=== PATIENT | female | born 1990 | race Hispanic/Latino ===

== ENCOUNTER 2017-07-08 12:26 | Emergency (ER) | payer SELFPAY ==
[2017-07-08] MEDS ORDERED: ONDANSETRON ODT 4 MG TAB ONE (13:37)
[2017-07-08 13:45] LABS: APPEARANCE,URINE Clear (CLEAR); BILIRUBIN,URINE Negative (NEGATIVE); COLOR,URINE Yellow (YELLOW); GLUCOSE, URINE (UA) Negative (NEGATIVE); KETONES,URINE Negative (NEGATIVE); LEUKOCYTE ESTERASE ,URINE Moderate (NEGATIVE); NITRATE,URINE Negative (NEGATIVE); OCCULT BLOOD,URINE Small (NEGATIVE); PROTEIN,URINE Negative (NEGATIVE)
[2017-07-08 14:02] LABS: BASOPHILS % (AUTO) 0.5 % (0.0-5.0); EOSINOPHILS % (AUTO) 1.7 % (0.0-8.0); LYMPHOCYTES % (AUTO) 18.5 % (21.0-51.0); MEAN CORPUSCULAR HEMOGLOBIN 31.6 pg (27.0-33.0); MEAN CORPUSCULAR HGB CONC 34.5 g/dL (32.0-36.0); MEAN CORPUSCULAR VOLUME 91.5 fL (79-99); MONOCYTES % (AUTO) 11.5 % (3.0-13.0); NEUTROPHILS % (AUTO) 67.8 % (40.0-77.0); PLATELET COUNT (AUTO) 283 K/uL (130-400); RED BLOOD CELL COUNT(AUTO) 4.15 MIL/uL (4.00-5.50); RED CELL DISTRIBUTION WIDTH 13.5 % (11.0-15.5); WHITE BLOOD COUNT (AUTO) 8.6 K/uL (4.8-10.8)
[2017-07-08 14:20] LABS: HCG,QUAL RESULT NEGATIVE (NEGATIVE)
[2017-07-08 14:25] LABS: CREATININE 0.5 mg/dL (0.5-1.5); POTASSIUM 4.1 mmol/L (3.5-5.1)
[2017-07-08 14:28] LABS: BACTERIA,URINE Rare /HPF (None Seen); RBC,URINE 0-1 /HPF (0-1); SQUAMOUS EPITHELIAL CELL,UR Few /LPF (0-2)
[2017-07-08] MEDS ORDERED: HYOSCYAMINE SULFATE 0.125 MG TAB.SUBL SL ONE (15:24)
== END 2017-07-08 15:36 | disposition home or self-care (01) ==
LOC: EDH 12:26
DX: N39.0 Urinary tract infection, site not specified (principal); K59.00 Constipation, unspecified
CPT/HCPCS: 36415; 74021; 80048; 81001; 81025; 85025

== ENCOUNTER 2018-04-02 17:39 | Emergency (ER) | payer OTHER ==
[2018-04-02] MEDS ORDERED: METOCLOPRAMIDE 10 MG TABLET ONE (18:46)
[2018-04-02] MEDS ORDERED: DiphenhydrAMINE HCL 25 MG/10 ML ELIXIR UDCUP ONE (18:46)
[2018-04-02] MEDS ORDERED: KETOROLAC TROMETHAMINE 60 MG/2 ML VIAL ONE (18:47)
[2018-04-02] MEDS ORDERED: ONDANSETRON ODT 4 MG TAB ONE (18:47)
== END 2018-04-02 19:29 | disposition home or self-care (01) ==
LOC: EDH 17:39
DX: G44.209 Tension-type headache, unspecified, not intractable (principal)
CPT/HCPCS: 81025; 96372; 99284; J1885

== ENCOUNTER 2018-04-08 12:08 | Inpatient (IN) | payer SELFPAY ==
[~2018-04-08] VITALS: Ht 154.9 cm; Wt 55.6 kg
[2018-04-08 12:33] LABS: APPEARANCE,URINE Clear (CLEAR); BILIRUBIN,URINE Negative (NEGATIVE); COLOR,URINE Yellow (YELLOW); GLUCOSE, URINE (UA) Negative (NEGATIVE); KETONES,URINE Negative (NEGATIVE); LEUKOCYTE ESTERASE ,URINE Trace (NEGATIVE); NITRATE,URINE Negative (NEGATIVE); OCCULT BLOOD,URINE Negative (NEGATIVE); PH,URINE 8.5 (5.0-8.0); PROTEIN,URINE Negative (NEGATIVE)
[2018-04-08 12:36] LABS: HCG,QUAL RESULT NEGATIVE (NEGATIVE)
[2018-04-08 13:25] LABS: BACTERIA,URINE Rare /HPF (None Seen); RBC,URINE None Seen /HPF (0-1); SQUAMOUS EPITHELIAL CELL,UR Few /HPF (0-2); WBC,URINE 0-1 /HPF (0-1)
[2018-04-08] MEDS ORDERED: HYOSCYAMINE SULFATE 0.125 MG TAB.SUBL SL ONE (14:49)
[2018-04-08 17:47] LABS: BASOPHILS % (AUTO) 0.3 % (0.0-5.0); EOSINOPHILS % (AUTO) 0.8 % (0.0-8.0); HEMATOCRIT 43.7 % (36-48); LYMPHOCYTES % (AUTO) 12.3 % (21.0-51.0); MEAN CORPUSCULAR HEMOGLOBIN 31.5 pg (27.0-33.0); MEAN CORPUSCULAR VOLUME 92.6 fL (79-99); MONOCYTES % (AUTO) 5.8 % (3.0-13.0); NEUTROPHILS % (AUTO) 80.8 % (40.0-77.0); PLATELET COUNT (AUTO) 272 K/uL (130-400); RED BLOOD CELL COUNT(AUTO) 4.72 MIL/uL (4.00-5.50); RED CELL DISTRIBUTION WIDTH 13.1 % (11.0-15.5); WHITE BLOOD COUNT (AUTO) 12.2 K/uL (4.8-10.8)
[2018-04-08 18:01] LABS: CREATININE 0.5 mg/dL (0.5-1.5); POTASSIUM 4.1 mmol/L (3.5-5.1)
[2018-04-08] MEDS ORDERED: SODIUM CHLORIDE 0.9% 1000ML 1,000 ML IV ONE (18:02)
[2018-04-08 18:06] LABS: ALBUMIN 4.1 g/dL (3.5-5.0); BILIRUBIN,TOTAL 0.8 mg/dL (0.2-1.0); TOTAL PROTEIN, SERUM 8.1 g/dL (6.0-8.3)
[2018-04-08] MEDS ORDERED: PEG 3350/NA SULF,BICARB,CL/KCL 4000 ML SOLN PO ONE ×2 (19:00→21:00)
[2018-04-08 20:16] VITALS: BP 132/82
[2018-04-08 21:36] LABS: BASOPHILS % (AUTO) 0.4 % (0.0-5.0); EOSINOPHILS % (AUTO) 0.7 % (0.0-8.0); HEMATOCRIT 41.6 % (36-48); LYMPHOCYTES % (AUTO) 15.2 % (21.0-51.0); MEAN CORPUSCULAR HEMOGLOBIN 32.2 pg (27.0-33.0); MEAN CORPUSCULAR HGB CONC 34.9 g/dL (32.0-36.0); MEAN CORPUSCULAR VOLUME 92.2 fL (79-99); MONOCYTES % (AUTO) 5.8 % (3.0-13.0); NEUTROPHILS % (AUTO) 77.9 % (40.0-77.0); PLATELET COUNT (AUTO) 275 K/uL (130-400); RED BLOOD CELL COUNT(AUTO) 4.51 MIL/uL (4.00-5.50); RED CELL DISTRIBUTION WIDTH 12.4 % (11.0-15.5); WHITE BLOOD COUNT (AUTO) 9.5 K/uL (4.8-10.8)
[2018-04-08 21:48] LABS: CREATININE 0.6 mg/dL (0.5-1.5); POTASSIUM 3.7 mmol/L (3.5-5.1)
[2018-04-08 21:49] LABS: INR 1.03 (0.85-1.15); PROTHROMBIN TIME 10.8 SEC (9.6-11.6)
[2018-04-08] MEDS ORDERED: LIDOCAINE HCL-MPF 1% 2ML VIAL IVP PRN (22:15)
[2018-04-08] MEDS ORDERED: KETOROLAC TROMETHAMINE 30MG/ML IV PRN (22:15)
[2018-04-08] MEDS ORDERED: MAGNESIUM 2GM PREMIX 50ML 50 ML IV PRN (22:15)
[2018-04-08] MEDS ORDERED: POTASSIUM CHLORIDE 20MEQ/100ML 100 ML IV PRN (22:15)
[2018-04-08] MEDS: SODIUM CHLORIDE 0.9% 1000ML 1,000 ML IV SCH (22:19)
[2018-04-08] MEDS: FAMOTIDINE/PF 20 MG/2 ML VIAL IV SCH (22:19)
[2018-04-08] MEDS ORDERED: KETOROLAC TROMETHAMINE 30MG/ML ONE (23:06)
[2018-04-09] VITALS (14 sets, daily range): BP systolic 114–139; BP diastolic 60–86
[2018-04-09] MEDS: SODIUM CHLORIDE 0.9% 1000ML 1,000 ML IV SCH ×2 (03:25→14:01)
[2018-04-09 04:43] LABS: BASOPHILS % (AUTO) 0.6 % (0.0-5.0); EOSINOPHILS % (AUTO) 2.2 % (0.0-8.0); HEMATOCRIT 40.1 % (36-48); LYMPHOCYTES % (AUTO) 21.1 % (21.0-51.0); MEAN CORPUSCULAR HEMOGLOBIN 30.8 pg (27.0-33.0); MEAN CORPUSCULAR HGB CONC 33.3 g/dL (32.0-36.0); MEAN CORPUSCULAR VOLUME 92.4 fL (79-99); MONOCYTES % (AUTO) 10.6 % (3.0-13.0); NEUTROPHILS % (AUTO) 65.5 % (40.0-77.0); PLATELET COUNT (AUTO) 238 K/uL (130-400); RED BLOOD CELL COUNT(AUTO) 4.34 MIL/uL (4.00-5.50); RED CELL DISTRIBUTION WIDTH 12.7 % (11.0-15.5); WHITE BLOOD COUNT (AUTO) 7.8 K/uL (4.8-10.8)
[2018-04-09 04:57] LABS: ALBUMIN 3.4 g/dL (3.5-5.0); BILIRUBIN,TOTAL 0.8 mg/dL (0.2-1.0); CREATININE 0.6 mg/dL (0.5-1.5); MAGNESIUM 1.8 mg/dL (1.80-2.40); POTASSIUM 3.7 mmol/L (3.5-5.1); TOTAL PROTEIN, SERUM 7.1 g/dL (6.0-8.3)
[2018-04-09] MEDS: FAMOTIDINE/PF 20 MG/2 ML VIAL IV SCH (08:29)
[2018-04-09] MEDS ORDERED: PROPOFOL 10 MG/ML 20ML VIAL IV ONE ×2 (18:46→18:56)
== END 2018-04-09 21:50 | disposition home or self-care (01) | DRG 395 ==
LOC: EDH 12:08 → EDHIP 12:09 → 3AH 19:03
PROVIDERS: ADMIT Internal Medicine; ATTEND Internal Medicine
PROC: 0DBP8ZX Excision of Rectum, Via Natural or Artificial Opening Endoscopic, Diagnostic (ICD-10-PCS; principal; 2018-04-09)
DX: K62.6 Ulcer of anus and rectum (principal); R10.9 Unspecified abdominal pain; K56.41 Fecal impaction; K64.0 First degree hemorrhoids; F41.9 Anxiety disorder, unspecified
CPT/HCPCS: 36415; 45380; 74018; 74176; 80048; 80053; 81001; 81025; 83735; 85025; 85610; 88305; J1885; J2704; J3490; J7030

== ENCOUNTER 2018-12-14 22:11 | Emergency (ER) | payer OTHER ==
[2018-12-14 22:29] LABS: APPEARANCE,URINE Clear (CLEAR); BILIRUBIN,URINE Negative (NEGATIVE); COLOR,URINE Yellow (YELLOW); GLUCOSE, URINE (UA) Negative (NEGATIVE); KETONES,URINE Negative (NEGATIVE); LEUKOCYTE ESTERASE ,URINE Moderate (NEGATIVE); NITRATE,URINE Negative (NEGATIVE); OCCULT BLOOD,URINE Small (NEGATIVE); PROTEIN,URINE Negative (NEGATIVE)
[2018-12-14 23:00] LABS: BACTERIA,URINE None Seen /HPF (None Seen)
[2018-12-14 23:01] LABS: MUCUS,URINE Moderate LPF (None Seen); SQUAMOUS EPITHELIAL CELL,UR Moderate /HPF (0-2)
== END 2018-12-15 00:01 | disposition home or self-care (01) ==
LOC: EDH 22:11
DX: O23.41 Unspecified infection of urinary tract in pregnancy, first trimester (principal); F41.9 Anxiety disorder, unspecified; R10.2 Pelvic and perineal pain; Z3A.01 Less than 8 weeks gestation of pregnancy
CPT/HCPCS: 36415; 81001; 84702

== ENCOUNTER 2018-12-16 16:23 | Emergency (ER) | payer MEDICAID, OTHER ==
[2018-12-16 17:00] LABS: APPEARANCE,URINE Clear (CLEAR); BILIRUBIN,URINE Negative (NEGATIVE); COLOR,URINE Yellow (YELLOW); GLUCOSE, URINE (UA) Negative (NEGATIVE); KETONES,URINE Negative (NEGATIVE); LEUKOCYTE ESTERASE ,URINE Moderate (NEGATIVE); NITRATE,URINE Negative (NEGATIVE); OCCULT BLOOD,URINE Negative (NEGATIVE); PH,URINE 5.5 (5.0-8.0); PROTEIN,URINE Negative (NEGATIVE)
[2018-12-16 17:18] LABS: BACTERIA,URINE Few /HPF (None Seen); RBC,URINE 0-1 /HPF (0-1)
[2018-12-16 17:19] LABS: SQUAMOUS EPITHELIAL CELL,UR Few /HPF (0-2)
== END 2018-12-16 17:58 | disposition home or self-care (01) ==
LOC: EDH 16:23
DX: O23.41 Unspecified infection of urinary tract in pregnancy, first trimester (principal); F41.9 Anxiety disorder, unspecified; Z3A.01 Less than 8 weeks gestation of pregnancy
CPT/HCPCS: 81001; 87088

== ENCOUNTER 2019-03-28 20:26 | Emergency (ER) | payer MEDICAID ==
[2019-03-28 21:31] LABS: APPEARANCE,URINE Clear (CLEAR); BILIRUBIN,URINE Negative (NEGATIVE); COLOR,URINE Yellow (YELLOW); GLUCOSE, URINE (UA) Negative (NEGATIVE); KETONES,URINE Negative (NEGATIVE); LEUKOCYTE ESTERASE ,URINE Moderate (NEGATIVE); NITRATE,URINE Negative (NEGATIVE); OCCULT BLOOD,URINE Negative (NEGATIVE); PH,URINE 6.5 (5.0-8.0); PROTEIN,URINE Negative (NEGATIVE)
[2019-03-28 21:46] LABS: RBC,URINE 0-1 /HPF (0-1)
[2019-03-28 21:47] LABS: BACTERIA,URINE Few /HPF (None Seen); SQUAMOUS EPITHELIAL CELL,UR Few /HPF (0-2)
[2019-03-28 21:48] LABS: AMORPHOUS SEDIMENT,UR Few /LPF (None Seen)
[2019-03-28] MEDS ORDERED: LIDOCAINE HCL-MPF 1% 2ML VIAL ONE (21:51)
[2019-03-28] MEDS ORDERED: CEFTRIAXONE SODIUM 1 GM ONE (21:51)
== END 2019-03-28 23:07 | disposition home or self-care (01) ==
LOC: EDH 20:26
DX: O23.12 Infections of bladder in pregnancy, second trimester (principal); Z79.899 Other long term (current) drug therapy; Z3A.18 18 weeks gestation of pregnancy
CPT/HCPCS: 76805; 81001; 87804 ×2; 96372; 99285; J0696; J3490

== ENCOUNTER 2020-11-21 14:39 | Emergency (ER) | payer MEDICAID, OTHER ==
[~2020-11-21 14:39] MED LIST: PREN1TAB80 PO
[2020-11-21 16:20] LABS: BASOPHILS % (AUTO) 0.5 % (0.0-5.0); EOSINOPHILS % (AUTO) 1.8 % (0.0-8.0); HEMATOCRIT 37.5 % (36-48); LYMPHOCYTES % (AUTO) 16.9 % (21.0-51.0); MEAN CORPUSCULAR HEMOGLOBIN 28.5 pg (27.0-33.0); MEAN CORPUSCULAR HGB CONC 32.5 g/dL (32.0-36.0); MEAN CORPUSCULAR VOLUME 87.6 fL (79-99); MONOCYTES % (AUTO) 10.1 % (3.0-13.0); NEUTROPHILS % (AUTO) 70.2 % (40.0-77.0); PLATELET COUNT (AUTO) 253 K/uL (130-400); RED BLOOD CELL COUNT(AUTO) 4.28 MIL/uL (4.00-5.50); RED CELL DISTRIBUTION WIDTH 14.1 % (11.0-15.5); WHITE BLOOD COUNT (AUTO) 8.5 K/uL (4.8-10.8)
[2020-11-21 16:31] LABS: CREATININE 0.5 mg/dL (0.5-1.5); POTASSIUM 3.8 mmol/L (3.5-5.1)
[2020-11-21 16:36] LABS: ALBUMIN 3.7 g/dL (3.5-5.0); BILIRUBIN,TOTAL 0.4 mg/dL (0.2-1.0); TOTAL PROTEIN, SERUM 7.7 g/dL (6.0-8.3)
[2020-11-21] MEDS ORDERED: METHYLPREDNISOLONE SOD SUCC 40MG/ML 1ML ONE (16:39)
== END 2020-11-21 16:59 | disposition home or self-care (01) ==
LOC: EDH 14:39
DX: G56.22 Lesion of ulnar nerve, left upper limb (principal); S20.212A Contusion of left front wall of thorax, initial encounter; F41.9 Anxiety disorder, unspecified; Z86.16 Personal history of COVID-19; X58.XXXA Exposure to other specified factors, initial encounter; Y93.89 Activity, other specified; Y92.89 Other specified places as the place of occurrence of the external cause; Y99.8 Other external cause status
CPT/HCPCS: 36415; 80053; 84484; 85025; 93005; 96372; 99284; J2920

== ENCOUNTER 2021-01-09 15:07 | Emergency (ER) | payer MEDICAID ==
[~2021-01-09] VITALS: Ht 154.9 cm; Wt 68.0 kg
[2021-01-09 15:09] VITALS: BP 112/53
[2021-01-09] MEDS ORDERED: 0.9%NACL 1000ML 1,000 ML IV ONE (16:00)
[2021-01-09] MEDS ORDERED: CEFTRIAXONE 1G VIAL IVP ONE (16:00)
[2021-01-09] MEDS ORDERED: PHENAZOPYRIDINE HCL 200 MG TABLET PO ONE (16:00)
[2021-01-09 16:01] LABS: APPEARANCE,URINE CLOUDY (CLEAR); BILIRUBIN,URINE SMALL (NEGATIVE); COLOR,URINE YELLOW (YELLOW); GLUCOSE, URINE (UA) NEGATIVE (NEGATIVE); KETONES,URINE 5 mg/dL (NEGATIVE); LEUKOCYTE ESTERASE ,URINE SMALL (NEGATIVE); NITRATE,URINE POSITIVE (NEGATIVE); OCCULT BLOOD,URINE MODERATE (NEGATIVE); PROTEIN,URINE >=300 mg/dL (NEGATIVE); UROBILINOGEN,URINE >=8.0 mg/dL (0.2-1.0)
[2021-01-09 16:05] LABS: BASOPHILS % (AUTO) 0.1 % (0.0-5.0); HEMATOCRIT 39.3 % (36-48); LYMPHOCYTES % (AUTO) 2.8 % (21.0-51.0); MEAN CORPUSCULAR HEMOGLOBIN 28.1 pg (27.0-33.0); MEAN CORPUSCULAR HGB CONC 33.1 g/dL (32.0-36.0); MEAN CORPUSCULAR VOLUME 84.9 fL (79-99); MONOCYTES % (AUTO) 7.2 % (3.0-13.0); NEUTROPHILS % (AUTO) 89.3 % (40.0-77.0); PLATELET COUNT (AUTO) 157 K/uL (130-400); RED BLOOD CELL COUNT(AUTO) 4.63 MIL/uL (4.00-5.50); RED CELL DISTRIBUTION WIDTH 14.9 % (11.0-15.5); WHITE BLOOD COUNT (AUTO) 15.6 K/uL (4.8-10.8)
[2021-01-09 16:16] LABS: HCG,QUAL RESULT NEGATIVE (NEGATIVE)
[2021-01-09 16:19] LABS: BACTERIA,URINE Few /HPF (None Seen); MUCUS,URINE Rare LPF (None Seen); SQUAMOUS EPITHELIAL CELL,UR Moderate /HPF (0-2); WBC,URINE 26-50 /HPF (0-1)
[2021-01-09 16:28] LABS: CREATININE 0.7 mg/dL (0.5-1.5); POTASSIUM 3.4 mmol/L (3.5-5.1)
[2021-01-09 16:34] LABS: ALBUMIN 3.3 g/dL (3.5-5.0); BILIRUBIN,TOTAL 0.8 mg/dL (0.2-1.0)
[2021-01-09] MEDS ORDERED: HYDROCODONE/ACETAMINOPHEN 10/325 MG TAB PO ONE (17:00)
[2021-01-09] MEDS ORDERED: CEPH500B PO (17:48)
[2021-01-09] MEDS ORDERED: PHEN-847 PO (17:48)
[2021-01-09 18:22] VITALS: BP 114/76
== END 2021-01-09 18:22 | disposition home or self-care (01) ==
LOC: EDH 15:07
DX: N39.0 Urinary tract infection, site not specified (principal); E86.0 Dehydration; Z79.899 Other long term (current) drug therapy
CPT/HCPCS: 36415; 80053; 81001; 81025; 83690; 85025; 87077; 87088; 87186; 96374; 99283; J0696

== ENCOUNTER 2021-04-09 10:25 | Emergency (ER) | payer MEDICAID ==
[~2021-04-09] VITALS: Ht 154.9 cm; Wt 68.0 kg
[~2021-04-09 10:25] MED LIST changes: +CEPH500B PO; +PHEN-847 PO
[2021-04-09 10:49] LABS: BASOPHILS % (AUTO) 0.6 % (0.0-5.0); EOSINOPHILS % (AUTO) 3.3 % (0.0-8.0); HEMATOCRIT 38.6 % (36-48); LYMPHOCYTES % (AUTO) 24.6 % (21.0-51.0); MEAN CORPUSCULAR HEMOGLOBIN 28.7 pg (27.0-33.0); MEAN CORPUSCULAR HGB CONC 32.9 g/dL (32.0-36.0); MEAN CORPUSCULAR VOLUME 87.1 fL (79-99); MONOCYTES % (AUTO) 13.2 % (3.0-13.0); NEUTROPHILS % (AUTO) 57.9 % (40.0-77.0); PLATELET COUNT (AUTO) 238 K/uL (130-400); RED BLOOD CELL COUNT(AUTO) 4.43 MIL/uL (4.00-5.50); RED CELL DISTRIBUTION WIDTH 13.2 % (11.0-15.5); WHITE BLOOD COUNT (AUTO) 4.9 K/uL (4.8-10.8)
[2021-04-09 10:58] LABS: CREATININE 0.5 mg/dL (0.5-1.5); POTASSIUM 3.8 mmol/L (3.5-5.1)
[2021-04-09] MEDS ORDERED: PHENAZOPYRIDINE HCL 200 MG TABLET PO SCH (11:00)
[2021-04-09 11:03] LABS: ALBUMIN 3.8 g/dL (3.5-5.0); BILIRUBIN,TOTAL 0.3 mg/dL (0.2-1.0); TOTAL PROTEIN, SERUM 7.6 g/dL (6.0-8.3)
[2021-04-09 11:17] LABS: APPEARANCE,URINE Cloudy (CLEAR); BILIRUBIN,URINE Negative (NEGATIVE); COLOR,URINE Dark Yellow (YELLOW); GLUCOSE, URINE (UA) Negative (NEGATIVE); KETONES,URINE Negative (NEGATIVE); LEUKOCYTE ESTERASE ,URINE Moderate (NEGATIVE); NITRATE,URINE Negative (NEGATIVE); OCCULT BLOOD,URINE Negative (NEGATIVE); PROTEIN,URINE Trace mg/dL (NEGATIVE)
[2021-04-09 11:46] LABS: HCG,QUAL RESULT NEGATIVE (NEGATIVE)
[2021-04-09 11:50] LABS: SQUAMOUS EPITHELIAL CELL,UR 30-50 /HPF (0-2)
[2021-04-09 11:51] LABS: RBC,URINE 0-1 /HPF (0-1)
[2021-04-09 11:52] LABS: BACTERIA,URINE Moderate /HPF (None Seen)
[2021-04-09] MEDS ORDERED: PHEN-847 PO (12:40)
[2021-04-09] MEDS ORDERED: NITR100C4 PO (12:40)
[2021-04-09 12:47] VITALS: BP 136/98
== END 2021-04-09 14:18 | disposition home or self-care (01) ==
LOC: EDH 10:25
DX: N39.0 Urinary tract infection, site not specified (principal); Z98.51 Tubal ligation status; Z79.899 Other long term (current) drug therapy
CPT/HCPCS: 36415; 80053; 81001; 81025; 83690; 85025; 87088

== ENCOUNTER 2021-07-01 07:58 | Emergency (ER) | payer MEDICAID ==
[~2021-07-01] VITALS: Ht 154.9 cm; Wt 64.9 kg
[~2021-07-01 07:58] MED LIST changes: +NITR100C4 PO
[2021-07-01 08:50] LABS: APPEARANCE,URINE Clear (CLEAR); BASOPHILS % (AUTO) 0.5 % (0.0-5.0); BILIRUBIN,URINE Negative (NEGATIVE); COLOR,URINE Yellow (YELLOW); EOSINOPHILS % (AUTO) 2.5 % (0.0-8.0); GLUCOSE, URINE (UA) Negative (NEGATIVE); HEMATOCRIT 40.4 % (36-48); KETONES,URINE Negative (NEGATIVE); LEUKOCYTE ESTERASE ,URINE Negative (NEGATIVE); LYMPHOCYTES % (AUTO) 21.7 % (21.0-51.0); MEAN CORPUSCULAR HGB CONC 32.7 g/dL (32.0-36.0); MEAN CORPUSCULAR VOLUME 85.6 fL (79-99); MONOCYTES % (AUTO) 8.1 % (3.0-13.0); NEUTROPHILS % (AUTO) 66.9 % (40.0-77.0); NITRATE,URINE Negative (NEGATIVE); OCCULT BLOOD,URINE Large (NEGATIVE); PLATELET COUNT (AUTO) 265 K/uL (130-400); PROTEIN,URINE Negative (NEGATIVE); RED BLOOD CELL COUNT(AUTO) 4.72 MIL/uL (4.00-5.50); RED CELL DISTRIBUTION WIDTH 14.1 % (11.0-15.5); WHITE BLOOD COUNT (AUTO) 5.9 K/uL (4.8-10.8)
[2021-07-01 08:53] LABS: HCG,QUAL RESULT NEGATIVE (NEGATIVE)
[2021-07-01 08:54] LABS: BACTERIA,URINE Rare /HPF (None Seen); SQUAMOUS EPITHELIAL CELL,UR Rare /HPF (0-2); WBC,URINE 0-1 /HPF (0-1)
[2021-07-01 08:58] LABS: AMPHET/METH SCREEN,URINE NEGATIVE (NEGATIVE); BARBITURATE SCREEN, URINE NEGATIVE (NEGATIVE); BENZODIAZEPINES SCREEN,URINE NEGATIVE (NEGATIVE); CANNABINOID SCREEN,URINE NEGATIVE (NEGATIVE); COCAINE SCREEN,URINE POSITIVE (NEGATIVE); OPIATE SCREEN,URINE NEGATIVE (NEGATIVE); PHENCYCLIDINE SCREEN,URINE NEGATIVE (NEGATIVE)
[2021-07-01 08:59] LABS: CREATININE 0.5 mg/dL (0.5-1.5); POTASSIUM 3.7 mmol/L (3.5-5.1)
[2021-07-01 09:51] VITALS: BP 122/78
== END 2021-07-01 09:57 | disposition home or self-care (01) ==
LOC: EDH 07:58
DX: R42 Dizziness and giddiness (principal); F14.90 Cocaine use, unspecified, uncomplicated; Z79.899 Other long term (current) drug therapy; Z98.51 Tubal ligation status
CPT/HCPCS: 36415; 80048; 80305; 81001; 81025; 84484; 85025; 93005

== ENCOUNTER 2021-12-28 01:26 | Emergency (ER) | payer MEDICAID ==
[~2021-12-28] VITALS: Ht 154.9 cm; Wt 67.1 kg
[2021-12-28 01:33] VITALS: BP 157/77
[2021-12-28 01:53] LABS: APPEARANCE,URINE CLEAR (CLEAR); BILIRUBIN,URINE NEGATIVE (NEGATIVE); COLOR,URINE YELLOW (YELLOW); GLUCOSE, URINE (UA) NEGATIVE (NEGATIVE); KETONES,URINE NEGATIVE (NEGATIVE); LEUKOCYTE ESTERASE ,URINE TRACE (NEGATIVE); NITRATE,URINE NEGATIVE (NEGATIVE); OCCULT BLOOD,URINE NEGATIVE (NEGATIVE); PROTEIN,URINE NEGATIVE (NEGATIVE)
[2021-12-28 01:56] LABS: HCG,QUAL RESULT NEGATIVE (NEGATIVE)
[2021-12-28 02:05] LABS: BACTERIA,URINE None Seen /HPF (None Seen); MUCUS,URINE Rare LPF (None Seen); RBC,URINE None Seen /HPF (0-1); SQUAMOUS EPITHELIAL CELL,UR Few /HPF (0-2)
[2021-12-28] MEDS ORDERED: CEFTRIAXONE 500MG VIAL IM SCH (02:30)
[2021-12-28] MEDS ORDERED: DOXY-336 PO (02:44)
== END 2021-12-28 02:52 | disposition home or self-care (01) ==
LOC: EDH 01:26
DX: N73.9 Female pelvic inflammatory disease, unspecified (principal); Z79.899 Other long term (current) drug therapy; Z98.890 Other specified postprocedural states
CPT/HCPCS: 81001; 81025; 87210; 87486; 87797; 96372; 99283; J0696

== ENCOUNTER 2022-08-10 09:44 | Emergency (ER) | payer MEDICAID ==
[~2022-08-10] VITALS: Ht 154.9 cm; Wt 63.5 kg
[~2022-08-10 09:44] MED LIST changes: +DOXY-469 PO
[2022-08-10 10:16] LABS: BASOPHILS % (AUTO) 0.4 % (0.0-5.0); EOSINOPHILS % (AUTO) 1.3 % (0.0-8.0); HEMATOCRIT 42.4 % (36-48); LYMPHOCYTES % (AUTO) 17.3 % (21.0-51.0); MEAN CORPUSCULAR HEMOGLOBIN 30.2 pg (27.0-33.0); MEAN CORPUSCULAR HGB CONC 33.7 g/dL (32.0-36.0); MEAN CORPUSCULAR VOLUME 89.5 fL (79-99); MONOCYTES % (AUTO) 9.3 % (3.0-13.0); NEUTROPHILS % (AUTO) 71.3 % (40.0-77.0); PLATELET COUNT (AUTO) 287 K/uL (130-400); RED BLOOD CELL COUNT(AUTO) 4.74 MIL/uL (4.00-5.50); RED CELL DISTRIBUTION WIDTH 12.3 % (11.0-15.5); WHITE BLOOD COUNT (AUTO) 7.8 K/uL (4.8-10.8)
[2022-08-10 10:28] LABS: APPEARANCE,URINE CLOUDY (CLEAR); BILIRUBIN,URINE NEGATIVE (NEGATIVE); COLOR,URINE LIGHT-YELLOW (YELLOW); GLUCOSE, URINE (UA) NEGATIVE (NEGATIVE); KETONES,URINE NEGATIVE (NEGATIVE); LEUKOCYTE ESTERASE ,URINE 25 Leu/uL (NEGATIVE); NITRATE,URINE NEGATIVE (NEGATIVE); OCCULT BLOOD,URINE NEGATIVE (NEGATIVE); PH,URINE 7.5 (5.0-8.0); PROTEIN,URINE NEGATIVE (NEGATIVE)
[2022-08-10 10:39] LABS: CREATININE 0.4 mg/dL (0.5-1.5); POTASSIUM 3.8 mmol/L (3.5-5.1)
[2022-08-10 10:43] LABS: MUCUS,URINE RARE LPF (None Seen); SQUAMOUS EPITHELIAL CELL,UR MANY /HPF (0-2)
[2022-08-10 10:44] LABS: ALBUMIN 3.9 g/dL (3.5-5.0); TOTAL PROTEIN, SERUM 7.6 g/dL (6.0-8.3)
[2022-08-10 10:48] LABS: HCG,QUALITATIVE URINE NEGATIVE (NEGATIVE)
[2022-08-10] MEDS ORDERED: SULF1TAB42 PO (12:28)
[2022-08-10 13:33] VITALS: BP 138/74
== END 2022-08-10 13:39 | disposition home or self-care (01) ==
LOC: EDH 09:44
DX: N39.0 Urinary tract infection, site not specified (principal); G43.909 Migraine, unspecified, not intractable, without status migrainosus; R10.30 Lower abdominal pain, unspecified; Z20.822 Contact with and (suspected) exposure to COVID-19; Z79.899 Other long term (current) drug therapy; Z98.890 Other specified postprocedural states
CPT/HCPCS: 99284; 87635; 84484; 80053; 85025; 87804 ×2; 81001; 81025; 36415; 93005; C9803

== ENCOUNTER 2022-11-11 21:52 | Emergency (ER) | payer MEDICAID ==
[~2022-11-11] VITALS: Ht 154.9 cm; Wt 71.2 kg
[~2022-11-11 21:52] MED LIST changes: +SULF1TAB42 PO
[2022-11-11] MEDS ORDERED: ONDANSETRON 4MG INJ ONE (22:39)
[2022-11-11 23:00] LABS: APPEARANCE,URINE CLEAR (CLEAR); BILIRUBIN,URINE NEGATIVE (NEGATIVE); COLOR,URINE YELLOW (YELLOW); GLUCOSE, URINE (UA) 200 mg/dL (NEGATIVE); KETONES,URINE NEGATIVE (NEGATIVE); LEUKOCYTE ESTERASE ,URINE 75 Leu/uL (NEGATIVE); NITRATE,URINE NEGATIVE (NEGATIVE); OCCULT BLOOD,URINE SMALL (NEGATIVE); PH,URINE 5.5 (5.0-8.0); PROTEIN,URINE NEGATIVE (NEGATIVE); UROBILINOGEN,URINE 3 mg/dL (0.2-1.0)
[2022-11-11] MEDS ORDERED: ONDANSETRON 4MG INJ IVP ONE (23:00)
[2022-11-11 23:10] LABS: MUCUS,URINE RARE LPF (None Seen); SQUAMOUS EPITHELIAL CELL,UR MOD /HPF (0-2)
[2022-11-11 23:17] LABS: BASOPHILS % (AUTO) 0.6 % (0.0-5.0); EOSINOPHILS % (AUTO) 1.6 % (0.0-8.0); LYMPHOCYTES % (AUTO) 26.9 % (21.0-51.0); MEAN CORPUSCULAR HGB CONC 34.2 g/dL (32.0-36.0); MEAN CORPUSCULAR VOLUME 90.5 fL (79-99); MONOCYTES % (AUTO) 11.8 % (3.0-13.0); NEUTROPHILS % (AUTO) 58.7 % (40.0-77.0); PLATELET COUNT (AUTO) 260 K/uL (130-400); WHITE BLOOD COUNT (AUTO) 6.9 K/uL (4.8-10.8)
[2022-11-11 23:26] LABS: CREATININE 0.5 mg/dL (0.5-1.5); POTASSIUM 3.7 mmol/L (3.5-5.1)
[2022-11-11 23:30] LABS: ALBUMIN 3.8 g/dL (3.5-5.0)
[2022-11-12] MEDS ORDERED: OMEP40CA21 PO (03:01)
[2022-11-12] MEDS ORDERED: ONDA-104 PO (03:01)
[2022-11-12 03:40] VITALS: BP 139/68
== END 2022-11-12 04:09 | disposition home or self-care (01) ==
LOC: EDH 21:52
DX: K21.9 Gastro-esophageal reflux disease without esophagitis (principal); K82.4 Cholesterolosis of gallbladder; F41.9 Anxiety disorder, unspecified; Z79.899 Other long term (current) drug therapy; Z98.890 Other specified postprocedural states
CPT/HCPCS: 99285; 71045; 84484 ×2; 80053; 85025; 87088; 81001; 81025; 36415; 93005; 96374; 76705; J2405

== ENCOUNTER 2022-11-27 18:40 | Emergency (ER) | payer MEDICAID ==
[~2022-11-27] VITALS: Ht 154.9 cm; Wt 69.4 kg
[~2022-11-27 18:40] MED LIST changes: +OMEP40CA21 PO; +ONDA-104 PO
[2022-11-27 19:56] VITALS: BP 153/88
== END 2022-11-27 21:19 | disposition left against medical advice (07) ==
LOC: EDH 18:40
DX: R10.9 Unspecified abdominal pain (principal); Z53.21 Procedure and treatment not carried out due to patient leaving prior to being seen by health care provider
CPT/HCPCS: 99281

== ENCOUNTER 2023-04-06 19:37 | Emergency (ER) | payer MEDICAID ==
[~2023-04-06] VITALS: Ht 154.9 cm; Wt 67.1 kg
[2023-04-06 19:41] VITALS: BP 195/104; PULSE 76; RESP 18
[2023-04-06] MEDS ORDERED: HYDROCODONE/ACETAMINOPHEN 5/325 MG TAB PO ONE (21:00)
== END 2023-04-06 20:58 | disposition home or self-care (01) ==
LOC: EDH 19:37
DX: S63.615A Unspecified sprain of left ring finger, initial encounter (principal); Z79.899 Other long term (current) drug therapy; X58.XXXA Exposure to other specified factors, initial encounter; Y93.89 Activity, other specified; Y92.89 Other specified places as the place of occurrence of the external cause; Y99.8 Other external cause status
CPT/HCPCS: 73140

== ENCOUNTER 2024-06-03 15:33 | Emergency (ER) | payer SELFPAY ==
[~2024-06-03] VITALS: Ht 154.9 cm; Wt 63.5 kg
[~2024-06-03 15:33] MED LIST changes: -DOXY-469 PO; +DOXY100C61 PO
--- NOTE | 2024-06-03 15:41 | ERN ---
ED Note History of Present Illness Stated Complaint: HEADACHE Chief Complaint: Headache Time Seen by MD: 15:37 Dictation: 34-YEAR-OLD FEMALE COMING IN TODAY WITH COMPLAINTS OF BILATERAL TEMPORAL HEADACHE THAT RADIATES TO THE OCCIPUT ONSET THIS MORNING AT 07:00 HOURS. SHE DENIED THAT IT WAS A THUNDERBEAT TYPE HEADACHE SAID HAS BEEN GRADUAL AND THAT SHE HAS MIGRAINE HEADACHE HISTORY. STATES HER PRIMARY CARE DOCTOR IS SUPRIYA PITTMAN HOWEVER SHE TOOK IBUPROFEN THIS MORNING AND THEN THREW IT UP AND DID NOT GO SEE HER DOCTOR. SHE STATES SHE HAD A FALL OVER A MONTH AGO AND HIT HER OCCIPUT HOWEVER SHE WAS TREATED AT [facility] IN [facility] WITH A CT AND EVERYTHING WAS NEGATIVE. NIH IS 0 GAIT IS STEADY TO TRIAGE. Patient did state she has been diagnosed with a concussion after the CT and was referred to a neurologist but because she did not have Medicaid at the time she did not go. She states she now has Medicaid back in place and is going to call the neurologist that she was referred to. Allergies: Coded Allergies: No Known Drug Allergies (Unverified Allergy, Unknown, 04/08/18) Home Meds Active Scripts Ondansetron HCl (Ondansetron HCl) 4 Mg Tablet, 4 MG PO TIDP PRN for VOMITING, #20 TAB Prov:ZACK RILEY MD 11/12/22 Omeprazole (Omeprazole) 40 Mg Capsule.dr, 40 MG PO DAILY, #30 CAP Prov:ZACK RILEY MD 11/12/22 Sulfamethoxazole/Trimethoprim (Bactrim Ds Tablet) 1 Each Tablet, 1 TAB PO BID for UTI for 5 Days, #10 TAB 0 Refills Prov:GENNY OSWALD DNP 08/10/22 Doxycycline Monohydrate (Doxycycline Monohydrate) 100 Mg Capsule, 1 CAP PO BID for 10 Days, #20 CAP 0 Refills Prov:AMANDA PADILLA MD 12/28/21 Phenazopyridine HCl (Pyridium) 200 Mg Tab, 200 MG PO TID for UTI for 3 Days, #9 TAB 0 Refills Prov:RODNEY GARCIA MD 04/09/21 Nitrofurantoin Monohyd/M-Cryst (Macrobid 100 mg Capsule) 100 Mg Capsule, 100 MG PO BIDPC for UTI, #14 CAP 0 Refills Prov:RODNEY GARCIA MD 04/09/21 Phenazopyridine HCl (Pyridium) 200 Mg Tab, 200 MG PO TIDPC, #9 TAB TAKE WITH FOOD TO PREVENT STOMACH UPSET. Prov:SMILEY TURNERAlfonzo TONY 01/09/21 Cephalexin Monohydrate (Keflex) 500 Mg Cap, 500 MG PO TID, #21 CAP Prov:LC TURNERRON TONY 01/09/21 Reported Medications Vits W-Ca,Fe,FA(<1Mg) ( Vitamins) 1 Each Tablet, 1 EACH PO DAILY, #1 TAB 08/05/19 Past Medical History Past Medical History: Anxiety, Migraines Surgical History: None Surgical History Other: Tubal ligation PSYCH History: no pertinent psych hx Family History: Negative Social History: Negative, Lives with family, Other History: Not Applicable : 5 Para: 5 Aborts: 0 RN Note Reviewed/Agreed w/PFSH: Yes Review of System Dictation CONSTITUTIONAL: NEGATIVE EXCEPT FOR HPI HEAD/FACE: NEGATIVE EXCEPT FOR HPI EENT: NEGATIVE EXCEPT FOR HPI RESPIRATORY: NEGATIVE EXCEPT FOR HPI GASTROINTESTINAL/ABDOMINAL: NEGATIVE EXCEPT FOR HPI GENITOURINARY: NEGATIVE EXCEPT FOR HPI MUSCULOSKELETAL: NEGATIVE EXCEPT FOR HPI INTEGUMENTARY: NEGATIVE EXCEPT FOR HPI NEUROLOGICAL/PSYCH: NEGATIVE EXCEPT FOR HPI HEADACHE HEMATOLOGIC/LYMPHATIC: NEGATIVE EXCEPT FOR HPI ALL SYSTEMS NEGATIVE, EXCEPT NOTED ABOVE. 13 POINT REVIEW OF SYSTEMS ASSESSED AND ALL NEGATIVE EXCEPT FOR ABOVE. Initial Vital Sign VS Vital Signs Date Time Temp Pulse Resp B/P (MAP) Pulse Ox O2 Delivery O2 Flow Rate FiO2 06/03/24 15:36 98.1 79 18 181/84 98 Physical Exam Dictation VITAL SIGNS REVIEWED GENERAL APPEARANCE: ALERT, ORIENTED X 3, MILD ACUTE DISTRESS, WELL DEVELOPED, NOURISHED. HEAD AND FACE: NON-TRAUMATIC. EYES: PERRL, PINK CONJUNCTIVAS, EYELID NO TRAUMA, ANTERIOR CHAMBER WITH ARCUS SENILIS. EARS: PINNAS INTACT AND NO SIGNS OF TRAUMA OR ERYTHEMA EAR CANALS CLEAR AND NO DISCHARGE TM NO ERYTHEMA NOSE: NO DISCHARGE, NO BLEEDING. OROPHARYNX: MOUTH NORMAL, TONGUE PINK, PHARYNX CLEAR,NO ERYTHEMA, TONSILS NO EXUDATES, NO ABSCESSES NOTED, MUCOUS MEMBRANE MOIST NECK: SUPPLE, NON-TENDER, NO THYROMEGALY, NO MASSES, NO JVD, NO BRUITS BREAST:DEFERRED CHEST:NO TENDERNESS, NO CREPITUS, NO PARADOXICAL MOVEMENT, NO RETRACTIONS LUNGS:CLEAR, WELL-VENTILATED, SYMMETRIC, NO RALES, NO WHEEZING, NO RHONCHI, NO STRIDOR, GOOD BREATH SOUNDS BILATERALLY HEART: REGULAR RATE, REGULAR RHYTHM, NO MURMUR, NO GALLOPS VASCULAR: NO PERIPHERAL EDEMA, ABDOMEN: SOFT, POSITIVE BOWEL SOUNDS, NONDISTENDED, NO GUARDING, NONTENDER, NO REBOUND, NO MASSES NO HEPATOMEGALY, NO SPLENOMEGALY, NO NICOLE'S SIGN, NO HERNIAS. RECTAL: DEFERRED GENITAL: DEFERRED NEUROLOGICAL: NORMAL SPEECH, MOTOR FUNCTION INTACT, SENSORY FUNCTION INTACT NIH IS 0 MUSCULOSKELETAL: NECK NONTENDER, FULL RANGE OF MOTION, BACK NONTENDER, FULL RANGE OF MOTION, EXTREMITIES: NONTENDER, FULL RANGE OF MOTION SKIN: COLOR PINK, DRY, NO TURGOR, NO RASH, NO LACERATIONS, NO ABRASIONS, NO CONTUSIONS. LYMPHATIC: DEFERRED Results (Laboratory/Radiology) Labs Reviewed?: Yes ED Course ED Course Orders Procedure Category Date Status Time Cyclobenzaprine Hcl PHA 06/03/24 Complete (Cyclobenzaprine Hcl 16:00 Dexamethasone 4mg/Ml PHA 06/03/24 Complete 1ml Vial (Dexametha 16:00 Ketorolac 60mg/2ml PHA 06/03/24 Complete (Toradol 60mg/2ml) 16:00 Current Medications Medications (Trade) Dose Ordered Sig/Miriam Route PRN Reason Start Time Stop Time Status Last Admin Dose Admin Cyclobenzaprine HCl (Cyclobenzaprine HCl) 10 mg ONCE ONCE PO 06/03/24 16:00 06/03/24 16:01 DC 06/03/24 16:54 Dexamethasone Sodium Phosphate (dexaMETHasone 4MG/ML 1ML VIAL) 8 mg ONCE ONCE IM 06/03/24 16:00 06/03/24 16:01 DC 06/03/24 16:54 Ketorolac Tromethamine (toRADol 60MG/ 2ML) 60 mg ONCE ONCE IM 06/03/24 16:00 06/03/24 16:01 DC 06/03/24 16:54 Vital Signs Date Time Temp Pulse Resp B/P (MAP) Pulse Ox O2 Delivery O2 Flow Rate FiO2 06/03/24 15:36 98.1 79 18 181/84 98 725 pain is reduced down to 1/10 patient states she is ready to go home. NIH is 0 Medical Decision Making MDM Medical decision-making based on treatment for postconcussion headache. Pain relieved Patient is sent home with Fioricet and told to follow up with her neurologist from her EM emergency room referral DX & DISP Disposition: Discharge Departure Impression: Primary Impression: Post-concussion headache Condition: Stable Scripts Butalb/Acetaminophen/Caffeine (Esgic 50-325-40 mg Tablet) 50 Mg-325 Mg-40 Mg Tablet 2 TAB PO Q4H, #20 TAB 0 Refills Two tablets by mouth every4 hours p.r.n. headache, maximum six tablets in 24 hours Prov: TRE MOTTA NP 06/03/24 Additional Instructions: Follow-up with primary care provider in 1 to 2 days. Take medications as directed here in the emergency room. Okay to continue home medications unless otherwise discussed during your visit in the emergency room today. Return to your nearest emergency room if symptoms worsen or if there is no improvement. Call 911 if you need immediate assistance. Take Tylenol or Motrin [id number] as needed and if no contraindications are present. Increase oral hydration. A wound culture or urine culture was ordered here in the emergency room department please follow-up with primary care provider and advise them to get repeat ports from our facility. If you had any Sloan wrap/splints that were applied here, please do not remove them until you see your primary care or specialty. Take medications as directed for your headache. Follow up with the neurologist who you were referred to by your primary care doctor. Referrals: BAILEY ROUSSEAU MD (PCP) Time of Disposition: 17:23 I have reviewed the case, and I agree with, Diagnosis and Plan TRE MOTTA NP Jun 03, 2024 15:41
[2024-06-03] MEDS: ketOROlac 60 MG VIAL (30MG/ML) IM ONE (16:54)
[2024-06-03] MEDS: CYCLOBENZAPRINE HCL 10 MG TABLET PO ONE (16:54)
[2024-06-03] MEDS: dexaMETHasone SOD PHOSPHATE 4 MG/ML 1ML VIAL IM ONE (16:54)
[2024-06-03] MEDS ORDERED: BUTA-271 PO (17:24)
[2024-06-03 17:44] VITALS: BP 132/90; PULSE 80; RESP 16; TEMP 98.3; O2SAT 98
== END 2024-06-03 17:38 | disposition home or self-care (01) ==
LOC: EDH 15:33
DX: G44.309 Post-traumatic headache, unspecified, not intractable (principal); Z79.899 Other long term (current) drug therapy; Z98.51 Tubal ligation status; F41.9 Anxiety disorder, unspecified
CPT/HCPCS: 99284; 96372 ×2; J1100; J1885

== ENCOUNTER 2024-06-05 13:55 | Emergency (ER) | payer SELFPAY ==
[~2024-06-05] VITALS: Ht 154.9 cm; Wt 63.5 kg
[~2024-06-05 13:55] MED LIST changes: +BUTA-271 PO
[2024-06-05] MEDS: acetaMINOPHEN 500 MG TABLET PO ONE (14:50)
--- NOTE | 2024-06-05 14:59 | ERN ---
General Chief Complaint: Headache Stated Complaint: HEADACHE Time Seen by MD: 13:59 Time Seen by Midlevel: 13:59 Source: patient History of Present Illness Initial Comments 34-year-old female who presents to the ED due to headache onset two days. Patient reports she was seen here at the ED given medication which improved the pain. Patient reports a concussion back in March after a fall, and to dental cavities ongoing for two years. Patient reports she is concerned due to pain not improving after ibuprofen, and randomly falling asleep. States she had two episodes of vomiting on Thursday but no other symptoms since. Allergies: Coded Allergies: No Known Drug Allergies (Unverified Allergy, Unknown, 04/08/18) Home Meds Active Scripts Amoxicillin/Potassium Clav (Amox Tr-K Clv 875-125 mg Tab) 875 Mg-125 Mg Tablet, 1 TAB PO BID for 7 Days, #14 TAB 0 Refills Prov:BONG TINEO 06/05/24 Gabapentin (Gabapentin) 100 Mg Capsule, 1 CAP PO TID for 3 Days, #90 CAP 0 Refills Prov:BONG TINEO 06/05/24 Butalb/Acetaminophen/Caffeine (Esgic 50-325-40 mg Tablet) 50 Mg-325 Mg-40 Mg Tablet, 2 TAB PO Q4H, #20 TAB 0 Refills Two tablets by mouth every4 hours p.r.n. headache, maximum six tablets in 24 hours Prov:TRE MOTTA NP 06/03/24 Ondansetron HCl (Ondansetron HCl) 4 Mg Tablet, 4 MG PO TIDP PRN for VOMITING, #20 TAB Prov:ZACK RILEY MD 11/12/22 Omeprazole (Omeprazole) 40 Mg Capsule.dr, 40 MG PO DAILY, #30 CAP Prov:ZACK RILEY MD 11/12/22 Sulfamethoxazole/Trimethoprim (Bactrim Ds Tablet) 1 Each Tablet, 1 TAB PO BID for UTI for 5 Days, #10 TAB 0 Refills Prov:GENNY OSWALD DNP 08/10/22 Doxycycline Monohydrate (Doxycycline Monohydrate) 100 Mg Capsule, 1 CAP PO BID for 10 Days, #20 CAP 0 Refills Prov:AMANDA PADILLA MD 12/28/21 Phenazopyridine HCl (Pyridium) 200 Mg Tab, 200 MG PO TID for UTI for 3 Days, #9 TAB 0 Refills Prov:RODNEY GARCIA MD 04/09/21 Nitrofurantoin Monohyd/M-Cryst (Macrobid 100 mg Capsule) 100 Mg Capsule, 100 MG PO BIDPC for UTI, #14 CAP 0 Refills Prov:RODNEY GARCIA MD 04/09/21 Phenazopyridine HCl (Pyridium) 200 Mg Tab, 200 MG PO TIDPC, #9 TAB TAKE WITH FOOD TO PREVENT STOMACH UPSET. Prov:ANDRÉS TURNER 01/09/21 Cephalexin Monohydrate (Keflex) 500 Mg Cap, 500 MG PO TID, #21 CAP Prov:ANDRÉS TURNER 01/09/21 Reported Medications Vits W-Ca,Fe,FA(<1Mg) ( Vitamins) 1 Each Tablet, 1 EACH PO DAILY, #1 TAB 08/05/19 Past Medical History Past Medical History: Anxiety Past Surgical History: None Surgical History Other: Tubal ligation Family History Family History: Negative Social History Social History: Negative, Lives with family, Other Female( History) History: Not Applicable LMP: May 13, 2024 : 5 Para: 5 Aborts: 0 ROS Dictation Constitutional: Negative for fever,chills, and weight loss Eyes: Negative for injury, pain,redness, and discharge ENT: Positive for dental pain and facial pain Negative for injury,or swelling Cardiovascular: Negative for chest pain, palpitations, and edema Respiratory: Negative for shortness of breath, cough, and wheezing, Abdomen/GI: Negative for abdominal pain, nausea, vomiting, diarrhea, and constipation Back: Negative for injury and pain : Negative for painful urination, bleeding or discharge MS/Extremity: Negative for injury and deformity Skin: Negative for rash, and discoloration Neuro: Positive for headache Negative for weakness, numbness, tingling, and seizure Psych: Negative for suicide ideation, homicidal ideation, and hallucinations Physical Exam Physical Exam Dictation General: awake, alert, no acute distress Head/Face: Normocephalic, atraumatic Eyes: PERRL, EOMI, normal conjunctiva ENT: oral mucosa moist, dental cavity noted to the upper right 4th and 5th tooth Neck: Normal range of motion Cardiovascular: RRR, normal S1/S2 Respiratory: CTAB, no respiratory distress Skin: Warm, dry, normal turgor, no rash MS/Extremity: Pulses equal, no cyanosis, neurovascular intact, FROM Neuro: COAx4, GCS 15, strength 5/5, CN 2-12 intact, normal cerebellar exam, normal gait Psych: Normal behavior, mood, and affect normal Results Laboratory and Microbiology Lab and Micro Result Laboratory Tests Test 06/05/24 15:01 White Blood Count 7.7 K/uL (4.8-10.8) Red Blood Count 4.13 MIL/uL (4.00-5.50) Hemoglobin 13.0 g/dL (12.0-16.0) Hematocrit 38.2 % (36-48) Mean Corpuscular Volume 92.5 fL (79-99) Mean Corpuscular Hemoglobin 31.5 pg (27.0-33.0) Mean Corpuscular Hemoglobin Concent 34.0 g/dL (32.0-36.0) Red Cell Distribution Width 12.5 % (11.0-15.5) Platelet Count 227 K/uL (130-400) Mean Platelet Volume 11.4 fL (7.5-10.5) H Immature Granulocyte % (Auto) 0.5 % (0-1) Neutrophils (%) (Auto) 66.2 % (40.0-77.0) Lymphocytes (%) (Auto) 22.9 % (21.0-51.0) Monocytes (%) (Auto) 9.0 % (3.0-13.0) Eosinophils (%) (Auto) 0.7 % (0.0-8.0) Basophils (%) (Auto) 0.7 % (0.0-5.0) Neutrophils # (Auto) 5.1 K/uL (1.8-7.7) Lymphocytes # (Auto) 1.8 K/uL (1.0-4.8) Monocytes # (Auto) 0.7 K/uL (0.1-1.0) Eosinophils # (Auto) 0.05 K/uL (0.00-0.70) Basophils # (Auto) 0.05 K/uL (0.00-0.20) Absolute Immature Granulocyte (auto 0.04 K/uL (0-1) Nucleated Red Blood Cells 0.0 % (0.0-0.19) Prothrombin Time 10.9 SEC (9.6-11.6) Prothromb Time International Ratio 1.01 (0.85-1.15) Activated Partial Thromboplast Time 24.5 SEC (26.3-35.5) L Sodium Level 141 mmol/L (136-145) Potassium Level 3.8 mmol/L (3.5-5.1) Chloride Level 107 mmol/L (101-111) Carbon Dioxide Level 28 mmol/L (21-32) Blood Urea Nitrogen 10 mg/dL (7-18) Creatinine 0.5 mg/dL (0.5-1.0) Glomerular Filtration Rate Calc 127 mL/min (>90) Random Glucose 114 mg/dL (70-105) H Total Calcium 7.9 mg/dL (8.5-10.1) L Labs Reviewed?: Yes EKG/XRAY/US/CT/MRI Ultrasound Comment REASON: Headache ORDERING PHYSICIAN: BONG TINEO PROCEDURE: HEAD WO - CT HEAD/BRAIN W/O CONTRAST Exam: NONCONTRAST CT BRAIN REASON: Headache. COMPARISON: None. TECHNIQUE: Images are obtained from vertex to the skull base. The exam was performed without IV contrast. FINDINGS: There is normal appearing brain parenchyma. There are no focal mass lesions. There is is no evidence of intracranial hemorrhage or acute stroke. Ventricles and sulci appear normal. Posterior fossa and brainstem structures are unremarkable. Paranasal sinuses and remaining extracranial soft tissues appear normal as well. IMPRESSION: 1. Normal noncontrast CT brain. CT was performed with one or more following dose reduction techniques: automated exposure control, adjustment of the mA and kv according to patient's size, or use of a iterative reconstruction technique. MDM MDM: Differential diagnosis: Migraine, headache, dental infection, dental cavities Rationale: 34-year-old female who presents to the ED due to headache onset two days. Patient reports she was seen here at the ED given medication which improved the pain. Patient reports a concussion back in March after a fall, and to dental cavities ongoing for two years. Patient reports she is concerned due to pain not improving after ibuprofen, and randomly falling asleep. States she had two episodes of vomiting on Thursday but no other symptoms since. Per physical examination patient is neurologically intact, in no acute distress. Patient requested head CT due to worsening headache and fear from previous concussion. Labs obtained are nonspecific. CT head unremarkable. Patient was educated on findings and diagnosis. Administered ketorolac and gabapentin in the ED with pain improvement. Patient was initiated on antibiotics prophylactically. Advised to follow up with PCP. Return to the ED if any worsening symptoms. Patient verbalized understanding. Patient stable for discharge. There are no social concerns with this patient. I independently interpreted the test that were performed, results were reviewed by me and considered findings on radiology if ordered. Medical management and examination interpretation discussions were had by me with other qualified healthcare professionals as indicated for the patient's care. ED Course Orders Procedure Category Date Status Time Cbc With Differential LAB 06/05/24 Complete 14: Basic Metabolic Panel LAB 06/05/24 Complete 14:26 Pt And Ptt LAB 06/05/24 Complete 14: Ct Head/Brain W/O CT 06/05/24 Resulted Contrast 14:32 Acetaminophen 500mg PHA 06/05/24 Complete Tab (Tylenol 500mg T 15:00 Ketorolac PHA 06/05/24 Complete Tromethamine 30mg/Ml 16:30 Gabapentin 100 Mg Cap PHA 06/05/24 Complete (Neurontin 100 Mg 16:30 Current Medications Medications (Trade) Dose Ordered Sig/Miriam Route PRN Reason Start Time Stop Time Status Last Admin Dose Admin Acetaminophen (TYLenol 500MG TAB) 1,000 mg ONCE ONCE PO 06/05/24 15:00 06/05/24 15:01 DC 06/05/24 14:50 Gabapentin (NEURontin 100 mg CAP) 100 mg ONCE PO 06/05/24 16:30 06/05/24 16:43 DC 06/05/24 16:22 Ketorolac Tromethamine (toRADol) 30 mg ONCE ONCE IM 06/05/24 16:30 06/05/24 16:31 DC 06/05/24 16:23 Vital Signs Date Time Temp Pulse Resp B/P (MAP) Pulse Ox O2 Delivery O2 Flow Rate FiO2 06/05/24 16:23 98.8 67 18 157/67 100 Room Air* 0 06/05/24 15:24 74 20 156/110 100 Room Air* 0 06/05/24 14:10 98.2 80 20 162/101 100 Room Air* 0 06/05/24 13:58 99.1 74 16 168/104 98 0 DX & DISP Disposition: Discharge Departure Impression: Primary Impression: Dental cavity Additional Impression: Headache Condition: Stable Scripts Amoxicillin/Potassium Clav (Amox Tr-K Clv 875-125 mg Tab) 875 Mg-125 Mg Tablet 1 TAB PO BID for 7 Days, #14 TAB 0 Refills Prov: BONG TINEO 06/05/24 Gabapentin (Gabapentin) 100 Mg Capsule 1 CAP PO TID for 3 Days, #90 CAP 0 Refills Prov: BONG TINEO 06/05/24 Additional Instructions: Discharge home. Rest. Follow up with primary care DrJose in 24 hours. Return to the ER for any acute changes or worsening symptoms. If any medications were prescribed take as directed. Okay to continue home medications unless otherwise discussed during your visit in the emergency room today. Patient was also advised to follow-up with primary care physician in 1 to 2 days for continued monitoring. Referrals: BAILEY ROUSSEAU MD (PCP) I participated in the following activities of this patient's care: For this patient encounter, I reviewed the PA or [employer] documentation, treatment plan, and medical decision making. I did not have [id number] time with this patient. I will sign as the reviewing DrJose And agree with the treatment plan and disposition. BONG TINEO Jun 05, 2024 14:59
[2024-06-05 15:15] LABS: BASOPHILS # (AUTO) 0.05 K/uL (0.00-0.20); BASOPHILS % (AUTO) 0.7 % (0.0-5.0); EOSINOPHILS # (AUTO) 0.05 K/uL (0.00-0.70); EOSINOPHILS % (AUTO) 0.7 % (0.0-8.0); HEMATOCRIT 38.2 % (36-48); IMMATURE GRANULOCYTE ABSOLUTE 0.04 K/uL (0-1); LYMPHOCYTES # (AUTO) 1.8 K/uL (1.0-4.8); LYMPHOCYTES % (AUTO) 22.9 % (21.0-51.0); MEAN CORPUSCULAR HEMOGLOBIN 31.5 pg (27.0-33.0); MEAN CORPUSCULAR VOLUME 92.5 fL (79-99); MONOCYTES # (AUTO) 0.7 K/uL (0.1-1.0); NEUTROPHILS # (AUTO) 5.1 K/uL (1.8-7.7); NEUTROPHILS % (AUTO) 66.2 % (40.0-77.0); PLATELET COUNT (AUTO) 227 K/uL (130-400); RED BLOOD CELL COUNT(AUTO) 4.13 MIL/uL (4.00-5.50); RED CELL DISTRIBUTION WIDTH 12.5 % (11.0-15.5); WHITE BLOOD COUNT (AUTO) 7.7 K/uL (4.8-10.8)
--- NOTE | 2024-06-05 15:23 | NUR ---
INFORMED PA REGARDING PATIENT PAIN. NO ORDERS AT THIS TIME.
--- NOTE | 2024-06-05 15:25 | NUR ---
PATIENT HAS BILATERAL TUBE LIGATION. CT TRANSPORTER DARIUS INFORMED AT THIS TIME
[2024-06-05 15:27] LABS: INR 1.01 (0.85-1.15); PROTHROMBIN TIME 10.9 SEC (9.6-11.6)
[2024-06-05 15:28] LABS: PARTIAL THROMBOPLASTIN TIME 24.5 SEC (26.3-35.5)
[2024-06-05 15:29] LABS: CREATININE 0.5 mg/dL (0.5-1.0); POTASSIUM 3.8 mmol/L (3.5-5.1)
--- NOTE | 2024-06-05 16:06 | HMCIMG ---
Exam: NONCONTRAST CT BRAIN REASON: Headache. COMPARISON: None. TECHNIQUE: Images are obtained from vertex to the skull base. The exam was performed without IV contrast. FINDINGS: There is normal appearing brain parenchyma. There are no focal mass lesions. There is is no evidence of intracranial hemorrhage or acute stroke. Ventricles and sulci appear normal. Posterior fossa and brainstem structures are unremarkable. Paranasal sinuses and remaining extracranial soft tissues appear normal as well. IMPRESSION: 1. Normal noncontrast CT brain. CT was performed with one or more following dose reduction techniques: automated exposure control, adjustment of the mA and kv according to patient's size, or use of a iterative reconstruction technique.
[2024-06-05] MEDS: GABApentin 100 MG CAPSULE PO SCH (16:22)
[2024-06-05 16:23] VITALS: BP 157/67; PULSE 67; RESP 18; TEMP 98.8; O2SAT 100
[2024-06-05] MEDS: ketOROlac 30MG VIAL (30MG/ML) IM ONE (16:23)
[2024-06-05] MEDS ORDERED: AMOX1TAB16 PO (16:30)
[2024-06-05] MEDS ORDERED: GABA-529 PO (16:30)
== END 2024-06-05 16:41 | disposition home or self-care (01) ==
LOC: EDH 13:55
DX: K02.9 Dental caries, unspecified (principal); R51.9 Headache, unspecified; Z79.899 Other long term (current) drug therapy; Z98.51 Tubal ligation status
CPT/HCPCS: 99285; 70450; 80048; 85025; 85610; 85730; 36415; 96372; J1885

== ENCOUNTER 2024-06-15 19:48 | Emergency (ER) | payer SELFPAY ==
[~2024-06-15] VITALS: Ht 154.9 cm; Wt 66.7 kg
[~2024-06-15 19:48] MED LIST changes: +AMOX1TAB16 PO; +GABA-529 PO
[2024-06-15 20:09] VITALS: PULSE 70
--- NOTE | 2024-06-15 20:15 | ERN ---
ED Note History of Present Illness Stated Complaint: C/O UPPER BACK PAIN W/SOB,CHEST TIGHTNESS,NAUSEA Chief Complaint: Back Pain-No Injury Time Seen by MD: 19:54 Dictation: PATIENT IS A 34-YEAR-OLD FEMALE COMING IN TODAY WITH COMPLAINTS OF ANTERIOR CHEST PAIN PRESSURE THAT RADIATES TO HER BACK ONSET THIS MORNING AT 08:00. SHE DENIES ANY ARM PAIN JAW PAIN. NO FEVER NO CHILLS NO COUGH STATES SHE HAS NOT GONE TO SEE HER PRIMARY CARE DOCTOR AT [facility] NOR HAS SHE TAKEN ANYTHING TODAY FOR THE PAIN. Allergies: Coded Allergies: No Known Drug Allergies (Unverified Allergy, Unknown, 04/08/18) Home Meds Active Scripts Amoxicillin/Potassium Clav (Amox Tr-K Clv 875-125 mg Tab) 875 Mg-125 Mg Tablet, 1 TAB PO BID for 7 Days, #14 TAB 0 Refills Prov:BONG TINEO 06/05/24 Gabapentin (Gabapentin) 100 Mg Capsule, 1 CAP PO TID for 3 Days, #90 CAP 0 Refills Prov:BONG TINEO 06/05/24 Butalb/Acetaminophen/Caffeine (Esgic 50-325-40 mg Tablet) 50 Mg-325 Mg-40 Mg Tablet, 2 TAB PO Q4H, #20 TAB 0 Refills Two tablets by mouth every4 hours p.r.n. headache, maximum six tablets in 24 hours Prov:TRE MOTTA NP 06/03/24 Ondansetron HCl (Ondansetron HCl) 4 Mg Tablet, 4 MG PO TIDP PRN for VOMITING, #20 TAB Prov:ZACK RILEY MD 11/12/22 Omeprazole (Omeprazole) 40 Mg Capsule., 40 MG PO DAILY, #30 CAP Prov:ZACK RILEY MD 11/12/22 Sulfamethoxazole/Trimethoprim (Bactrim Ds Tablet) 1 Each Tablet, 1 TAB PO BID for UTI for 5 Days, #10 TAB 0 Refills Prov:GENNY OSWALD DNP 08/10/22 Doxycycline Monohydrate (Doxycycline Monohydrate) 100 Mg Capsule, 1 CAP PO BID for 10 Days, #20 CAP 0 Refills Prov:AMANDA PADILLA MD 12/28/21 Phenazopyridine HCl (Pyridium) 200 Mg Tab, 200 MG PO TID for UTI for 3 Days, #9 TAB 0 Refills Prov:RODNEY GARCIA MD 04/09/21 Nitrofurantoin Monohyd/M-Cryst (Macrobid 100 mg Capsule) 100 Mg Capsule, 100 MG PO BIDPC for UTI, #14 CAP 0 Refills Prov:RODNEY GARCIA MD 04/09/21 Phenazopyridine HCl (Pyridium) 200 Mg Tab, 200 MG PO TIDPC, #9 TAB TAKE WITH FOOD TO PREVENT STOMACH UPSET. Prov:ANDRÉS TURNER 01/09/21 Cephalexin Monohydrate (Keflex) 500 Mg Cap, 500 MG PO TID, #21 CAP Prov:ANDRÉS TURNER 01/09/21 Reported Medications Vits W-Ca,Fe,FA(<1Mg) ( Vitamins) 1 Each Tablet, 1 EACH PO DAILY, #1 TAB 08/05/19 Past Medical History Past Medical History: No Pertinent History Surgical History: Other Surgical History Other: TUBAL LIGATION Family History: Negative Social History: Negative, Lives with family, Other History: Not Applicable LMP: Jun 03, 2024 : 5 Para: 5 Aborts: 0 RN Note Reviewed/Agreed w/PFSH: Yes Review of System Dictation CONSTITUTIONAL: NEGATIVE EXCEPT FOR HPI HEAD/FACE: NEGATIVE EXCEPT FOR HPI EENT: NEGATIVE EXCEPT FOR HPI RESPIRATORY: NEGATIVE EXCEPT FOR HPI GASTROINTESTINAL/ABDOMINAL: NEGATIVE EXCEPT FOR HPI GENITOURINARY: NEGATIVE EXCEPT FOR HPI MUSCULOSKELETAL: NEGATIVE EXCEPT FOR HPI INTEGUMENTARY: NEGATIVE EXCEPT FOR HPI NEUROLOGICAL/PSYCH: NEGATIVE EXCEPT FOR HPI HEMATOLOGIC/LYMPHATIC: NEGATIVE EXCEPT FOR HPI ALL SYSTEMS NEGATIVE, EXCEPT NOTED ABOVE. 13 POINT REVIEW OF SYSTEMS ASSESSED AND ALL NEGATIVE EXCEPT FOR ABOVE. Initial Vital Sign VS Vital Signs Date Time Temp Pulse Resp B/P (MAP) Pulse Ox O2 Delivery O2 Flow Rate FiO2 06/15/24 19:51 98.4 74 20 164/99 98 Room Air 06/15/24 20:09 0 21 Physical Exam Dictation VITAL SIGNS REVIEWED GENERAL APPEARANCE: ALERT, ORIENTED X 3, ACUTE DISTRESS, WELL DEVELOPED, NOURISHED. HEAD AND FACE: NON-TRAUMATIC. EYES: PERRL, PINK CONJUNCTIVAS, EYELID NO TRAUMA, ANTERIOR CHAMBER WITH ARCUS SENILIS. EARS: PINNAS INTACT AND NO SIGNS OF TRAUMA OR ERYTHEMA EAR CANALS CLEAR AND NO DISCHARGE TM NO ERYTHEMA NOSE: NO DISCHARGE, NO BLEEDING. OROPHARYNX: MOUTH NORMAL, TONGUE PINK, PHARYNX CLEAR,NO ERYTHEMA, TONSILS NO EXUDATES, NO ABSCESSES NOTED, MUCOUS MEMBRANE MOIST NECK: SUPPLE, NON-TENDER, NO THYROMEGALY, NO MASSES, NO JVD, NO BRUITS BREAST:DEFERRED CHEST:NO TENDERNESS, NO CREPITUS, NO PARADOXICAL MOVEMENT, NO RETRACTIONS LUNGS:CLEAR, WELL-VENTILATED, SYMMETRIC, NO RALES, NO WHEEZING, NO RHONCHI, NO STRIDOR, GOOD BREATH SOUNDS BILATERALLY HEART: REGULAR RATE, REGULAR RHYTHM, NO MURMUR, NO GALLOPS VASCULAR: NO PERIPHERAL EDEMA, ABDOMEN: SOFT, POSITIVE BOWEL SOUNDS, NONDISTENDED, NO GUARDING, NONTENDER, NO REBOUND, NO MASSES NO HEPATOMEGALY, NO SPLENOMEGALY, NO NICOLE'S SIGN, NO HERNIAS. RECTAL: DEFERRED GENITAL: DEFERRED NEUROLOGICAL: NORMAL SPEECH, MOTOR FUNCTION INTACT, SENSORY FUNCTION INTACT MUSCULOSKELETAL: NECK NONTENDER, FULL RANGE OF MOTION, BACK NONTENDER, FULL RANGE OF MOTION, EXTREMITIES: NONTENDER, FULL RANGE OF MOTION SKIN: COLOR PINK, DRY, NO TURGOR, NO RASH, NO LACERATIONS, NO ABRASIONS, NO CONTUSIONS. LYMPHATIC: DEFERRED Results (Laboratory/Radiology) Laboratory/Radiology Laboratory Tests Test 06/15/24 20:20 White Blood Count 7.4 K/uL (4.8-10.8) Red Blood Count 4.19 MIL/uL (4.00-5.50) Hemoglobin 13.2 g/dL (12.0-16.0) Hematocrit 38.2 % (36-48) Mean Corpuscular Volume 91.2 fL (79-99) Mean Corpuscular Hemoglobin 31.5 pg (27.0-33.0) Mean Corpuscular Hemoglobin Concent 34.6 g/dL (32.0-36.0) Red Cell Distribution Width 11.8 % (11.0-15.5) Platelet Count 258 K/uL (130-400) Mean Platelet Volume 10.9 fL (7.5-10.5) H Immature Granulocyte % (Auto) 0.7 % (0-1) Neutrophils (%) (Auto) 66.2 % (40.0-77.0) Lymphocytes (%) (Auto) 21.6 % (21.0-51.0) Monocytes (%) (Auto) 10.1 % (3.0-13.0) Eosinophils (%) (Auto) 0.9 % (0.0-8.0) Basophils (%) (Auto) 0.5 % (0.0-5.0) Neutrophils # (Auto) 4.9 K/uL (1.8-7.7) Lymphocytes # (Auto) 1.6 K/uL (1.0-4.8) Monocytes # (Auto) 0.8 K/uL (0.1-1.0) Eosinophils # (Auto) 0.07 K/uL (0.00-0.70) Basophils # (Auto) 0.04 K/uL (0.00-0.20) Absolute Immature Granulocyte (auto 0.05 K/uL (0-1) Nucleated Red Blood Cells 0.0 % (0.0-0.19) Sodium Level 140 mmol/L (136-145) Potassium Level 3.7 mmol/L (3.5-5.1) Chloride Level 107 mmol/L (101-111) Carbon Dioxide Level 31 mmol/L (21-32) Blood Urea Nitrogen 7 mg/dL (7-18) Creatinine 0.5 mg/dL (0.5-1.0) Glomerular Filtration Rate Calc 127 mL/min (>90) Random Glucose 104 mg/dL (70-105) Total Calcium 8.6 mg/dL (8.5-10.1) Troponin I High Sensitivity 5 ng/L (4-50) Serum Test, Qualitative NEGATIVE (NEGATIVE) Exam Type: CHEST 1VW Clinical Information: CHEST PAIN Comparison: None Findings: The lungs are clear of infiltrates. The heart is normal in size. The bony and soft tissue structures of the chest are unremarkable. Impression: Clear lungs. Labs Reviewed?: Yes EKG Comment: EKG NORMAL SINUS RHYTHM/HEART RATE 75/AXIS NORMAL/NO ECTOPY ED Course ED Course Orders Procedure Category Date Status Time 12 Lead Ekg Tracing- EKG 06/15/24 Logged Technical 19:55 Covid19 (Sars Antigen LAB 06/15/24 Logged Rapid) 20:01 Cbc With Differential LAB 06/15/24 Complete 20:01 Chest 1vw RAD 06/15/24 Resulted 20:01 12 Lead Ekg Tracing- EKG 06/15/24 Logged Technical 20:01 Troponin I High LAB 06/15/24 Complete Sensitivity 20:01 Basic Metabolic Panel LAB 06/15/24 Complete 20:01 Acetaminophen 500mg PHA 06/15/24 Complete Tab (Tylenol 500mg T 20:30 Testing, LAB 06/15/24 Complete Serum Hcg 20:11 Current Medications Medications (Trade) Dose Ordered Sig/Miriam Route PRN Reason Start Time Stop Time Status Last Admin Dose Admin Acetaminophen (TYLenol 500MG TAB) 1,000 mg ONCE ONCE PO 06/15/24 20:30 06/15/24 20:31 DC 06/15/24 20:56 Vital Signs Date Time Temp Pulse Resp B/P (MAP) Pulse Ox O2 Delivery O2 Flow Rate FiO2 06/15/24 20:09 98.4 70 20 162/95 98 Room Air* 0 21 06/15/24 19:51 98.4 74 20 164/99 98 Room Air 07/18/2051 PATIENT AWARE THAT HER CARDIAC WORKUP WAS NEGATIVE THIS IS ATYPICAL CHEST PAIN. DISCHARGED HOME WITH PAIN MEDS AND TOLD TO SEE HER PRIMARY CARE DOCTOR. HEART Score Response (Comments) Value History: Low suspicion (0) 0 EKG: Normal 0 Age: < 45yrs (0) 0 Risk Factors: No known risk factors (0) 0 Initial Troponin: Normal limit (0) 0 Total 0 Medical Decision Making MDM MDM: DIFFERENTIAL DIAGNOSIS: ACS/AMI/ELECTROLYTE IMBALANCE/DEHYDRATION/PNEUMONIA/BRONCHITIS/COSTOCHONDRITIS RATIONALE: TESTS CONSIDERED AND ORDERED SECONDARY TO SHARED DECISION MAKING INCLUDE: EKG/LABS/RADIOLOGY PREVIOUS OUTSIDE RECORDS REVIEWED: OLD ER VISITS. REVIEWED RISK OF COMPLICATION AND/OR MORBIDITY OR MORTALITY OF PATIENT MANAGEMENT: NONE MEDICATIONS-PER MEDICATION RECONCILIATION NEED FOR HOSPITALIZATION: PATIENT DOES NOT MEET CRITERIA FOR HOSPITALIZATION. NO NEED FOR EMERGENCY MAJOR/MINOR SURGERY: NO THERE ARE NO SOCIAL CONCERNS WITH THIS PATIENT. PRESCRIPTION DRUG MANAGEMENT IBUPROFEN PRESCRIPTIONS WILL INCLUDE SYMPTOMATIC CARE PATIENT'S PRIOR EXTERNAL MEDICAL RECORDS FROM OTHER ER VISITS WERE REVIEWED BY ME INDICATED. PRIOR TESTING AND RESULTS FROM PREVIOUS VISITS WERE REVIEWED. PRIOR TESTS WERE TAKEN INTO ACCOUNT WITH MEDICAL DECISION MAKING AND RESOURCE UTILIZATION, INDEPENDENT HISTORIAN/HISTORIANS WERE USED TO OBTAIN COMPLETE MEDICAL HISTORY. I INDEPENDENTLY INTERPRETED THE TEST THAT WERE PERFORMED, RESULTS WERE REVIEWED BY ME AND CONSIDERED FINDINGS ON RADIOLOGY IF ORDERED. MEDICAL MANAGEMENT AND EXAMINATION INTERPRETATION DISCUSSIONS WERE HAD BY ME WITH OTHER QUALIFIED HEALTHCARE PROFESSIONALS INDICATED FOR THE PATIENT'S CARE. DX & DISP Disposition: Discharge Departure Impression: Primary Impression: Atypical chest pain Condition: Stable Scripts Ibuprofen (Ibuprofen 800 mg Tab) 800 Mg Tab 800 MG PO Q8H PRN for fever or pain, #30 TAB 0 Refills Prov: TRE MOTTA NURSE MIDWIFE/CLINICAL INSTRUCTOR 06/15/24 Additional Instructions: FOLLOW-UP WITH PRIMARY CARE PROVIDER IN 1 TO 2 DAYS. TAKE MEDICATIONS DIRECTED HERE IN THE EMERGENCY ROOM. OKAY TO CONTINUE HOME MEDICATIONS UNLESS OTHERWISE DISCUSSED DURING YOUR VISIT IN THE EMERGENCY ROOM TODAY. RETURN TO YOUR NEAREST EMERGENCY ROOM IF SYMPTOMS WORSEN OR IF THERE IS NO IMPROVEMENT. CALL 911 IF YOU NEED IMMEDIATE ASSISTANCE. TAKE TYLENOL OR MOTRIN [id number] NEEDED AND IF NO CONTRAINDICATIONS ARE PRESENT. INCREASE ORAL HYDRATION. A WOUND CULTURE OR URINE CULTURE WAS ORDERED HERE IN THE EMERGENCY ROOM DEPARTMENT PLEASE FOLLOW-UP WITH PRIMARY CARE PROVIDER AND ADVISE THEM TO GET REPEAT PORTS FROM OUR FACILITY. IF YOU HAD ANY INGRID WRAP/SPLINTS THAT WERE APPLIED HERE, PLEASE DO NOT REMOVE THEM UNTIL YOU SEE YOUR PRIMARY CARE OR SPECIALTY. TAKE IBUPROFEN NEEDED FOR PAIN. , FOLLOW UP WITH YOUR PRIMARY CARE DOCTOR Referrals: SELF,REFERRAL (PCP) Time of Disposition: 21:55 I have reviewed the case, and I agree with, Diagnosis and Plan TRE MOTTA NP Jun 15, 2024 20:15
[2024-06-15 20:27] LABS: BASOPHILS # (AUTO) 0.04 K/uL (0.00-0.20); BASOPHILS % (AUTO) 0.5 % (0.0-5.0); EOSINOPHILS # (AUTO) 0.07 K/uL (0.00-0.70); EOSINOPHILS % (AUTO) 0.9 % (0.0-8.0); HEMATOCRIT 38.2 % (36-48); IMMATURE GRANULOCYTE ABSOLUTE 0.05 K/uL (0-1); LYMPHOCYTES # (AUTO) 1.6 K/uL (1.0-4.8); LYMPHOCYTES % (AUTO) 21.6 % (21.0-51.0); MEAN CORPUSCULAR HEMOGLOBIN 31.5 pg (27.0-33.0); MEAN CORPUSCULAR HGB CONC 34.6 g/dL (32.0-36.0); MEAN CORPUSCULAR VOLUME 91.2 fL (79-99); MONOCYTES # (AUTO) 0.8 K/uL (0.1-1.0); MONOCYTES % (AUTO) 10.1 % (3.0-13.0); NEUTROPHILS # (AUTO) 4.9 K/uL (1.8-7.7); NEUTROPHILS % (AUTO) 66.2 % (40.0-77.0); PLATELET COUNT (AUTO) 258 K/uL (130-400); RED BLOOD CELL COUNT(AUTO) 4.19 MIL/uL (4.00-5.50); RED CELL DISTRIBUTION WIDTH 11.8 % (11.0-15.5); WHITE BLOOD COUNT (AUTO) 7.4 K/uL (4.8-10.8)
[2024-06-15 20:36] LABS: CREATININE 0.5 mg/dL (0.5-1.0); POTASSIUM 3.7 mmol/L (3.5-5.1)
[2024-06-15] MEDS: acetaMINOPHEN 500 MG TABLET PO ONE (20:56)
--- NOTE | 2024-06-15 21:11 | HMCIMG ---
Exam Type: CHEST 1VW Clinical Information: CHEST PAIN Comparison: None Findings: The lungs are clear of infiltrates. The heart is normal in size. The bony and soft tissue structures of the chest are unremarkable. Impression: Clear lungs.
[2024-06-15] MEDS ORDERED: IBUP-2077 PO (21:56)
[2024-06-15 21:58] VITALS: BP 158/95; RESP 16; TEMP 98.3; O2SAT 98
--- NOTE | 2024-06-16 08:48 | EKG ---
[facility] Test Date: 2024-06-15 Test Time: 19:52:53 Pat Name: JUWAN ORTEGA Department: ED Room: Gender: F Cancer Program Coordinator: 1088 : 1990 Requested By: TATA CANDELARIA Order Number: [id number] Reading MD: Ernseto Mcgill Measurements Intervals [place] Rate: 75 P: 37 MN: 138 QRS: 2 QRSD: 80 T: 16 QT: 369 QTc: 414 Interpretive Statements Sinus rhythm Compared to ECG 11/11/2022 22:29:49 No significant changes Electronically Signed On 06-16-2024 20:16:51 LOIN PULLER by Ernesto Mcgill Please click the below link to view image of tracing.
== END 2024-06-15 22:07 | disposition home or self-care (01) ==
LOC: EDH 19:48
DX: R07.89 Other chest pain (principal); Z79.899 Other long term (current) drug therapy; Z98.51 Tubal ligation status
CPT/HCPCS: 36415; 71045; 80048; 84484; 84703; 85025; 93005; 99285

== ENCOUNTER 2024-10-08 18:32 | Emergency (ER) | payer MEDICAID ==
[~2024-10-08] VITALS: Ht 154.9 cm; Wt 67.6 kg
[~2024-10-08 18:32] MED LIST changes: +DOXY-466 PO; -DOXY100C61 PO; +IBUP-2077 PO
[2024-10-08 18:54] LABS: BASOPHILS # (AUTO) 0.07 K/uL (0.00-0.20); BASOPHILS % (AUTO) 0.8 % (0.0-5.0); EOSINOPHILS # (AUTO) 0.05 K/uL (0.00-0.70); EOSINOPHILS % (AUTO) 0.6 % (0.0-8.0); HEMATOCRIT 42.6 % (36-48); IMMATURE GRANULOCYTE ABSOLUTE 0.03 K/uL (0-1); LYMPHOCYTES # (AUTO) 1.3 K/uL (1.0-4.8); LYMPHOCYTES % (AUTO) 14.2 % (21.0-51.0); MEAN CORPUSCULAR HEMOGLOBIN 30.4 pg (27.0-33.0); MEAN CORPUSCULAR VOLUME 89.3 fL (79-99); MONOCYTES % (AUTO) 11.3 % (3.0-13.0); NEUTROPHILS # (AUTO) 6.4 K/uL (1.8-7.7); NEUTROPHILS % (AUTO) 72.8 % (40.0-77.0); PLATELET COUNT (AUTO) 308 K/uL (130-400); RED BLOOD CELL COUNT(AUTO) 4.77 MIL/uL (4.00-5.50); RED CELL DISTRIBUTION WIDTH 13.4 % (11.0-15.5); WHITE BLOOD COUNT (AUTO) 8.8 K/uL (4.8-10.8)
--- NOTE | 2024-10-08 18:58 | EKG ---
[facility] Test Date: 2024-10-08 Test Time: 18:56:46 Pat Name: JUWAN ORTEGA Department: ED Room: Gender: F Staker Surveying: 0962 : 1990 Requested By: MONTSERRAT LIMA Order Number: [id number] Reading MD: Bindu Briceno Measurements Intervals [place] Rate: 96 P: 11 [place]: 121 QRS: 11 QRSD: 79 T: 31 QT: 338 QTc: 427 Interpretive Statements Sinus rhythm Compared to ECG 06/15/2024 19:52:53 No significant changes Electronically Signed On 10-09-2024 10:18:49 CDT by Bindu Briceno Please click the below link to view image of tracing.
[2024-10-08 19:03] LABS: CREATININE 0.6 mg/dL (0.5-1.0); POTASSIUM 3.8 mmol/L (3.5-5.1)
[2024-10-08] MEDS: 0.9%NACL 1000ML 1,000 ML IV ONE (19:04)
[2024-10-08] MEDS: acetaMINOPHEN 325 MG TAB PO ONE (19:13)
--- NOTE | 2024-10-08 19:21 | ERN ---
General Chief Complaint: Lower Extremity Pain/Injury Stated Complaint: LEG PAIN Time Seen by MD: 18:35 Time Seen by Midlevel: 18:35 Source: patient History of Present Illness Initial Comments This is a 34-year-old female with no significant past medical history presenting to the emergency department for evaluation of left arm cramping in left leg cramping. Patient states she was driving when her symptoms started. She does admit to drinking alcohol last night and is concerned this may be related to that. Allergies: Coded Allergies: No Known Drug Allergies (Unverified Allergy, Unknown, 04/08/18) Home Meds Active Scripts Ibuprofen (Ibuprofen 800 mg Tab) 800 Mg Tab, 800 MG PO Q8H PRN for fever or pain, #30 TAB 0 Refills Prov:TRE MOTTA NP 06/15/24 Amoxicillin/Potassium Clav (Amox Tr-K Clv 875-125 mg Tab) 875 Mg-125 Mg Tablet, 1 TAB PO BID for 7 Days, #14 TAB 0 Refills Prov:BONG TINEO 06/05/24 Gabapentin (Gabapentin) 100 Mg Capsule, 1 CAP PO TID for 3 Days, #90 CAP 0 Refills Prov:BONG TINEO 06/05/24 Butalb/Acetaminophen/Caffeine (Esgic 50-325-40 mg Tablet) 50 Mg-325 Mg-40 Mg Tablet, 2 TAB PO Q4H, #20 TAB 0 Refills Two tablets by mouth every4 hours p.r.n. headache, maximum six tablets in 24 hours Prov:TRE MOTTA NP 06/03/24 Ondansetron HCl (Ondansetron HCl) 4 Mg Tablet, 4 MG PO TIDP PRN for VOMITING, #20 TAB Prov:ZACK RILEY MD 11/12/22 Omeprazole (Omeprazole) 40 Mg Capsule.dr, 40 MG PO DAILY, #30 CAP Prov:ZACK RILEY MD 11/12/22 Sulfamethoxazole/Trimethoprim (Bactrim Ds Tablet) 1 Each Tablet, 1 TAB PO BID for UTI for 5 Days, #10 TAB 0 Refills Prov:GENNY OSWALD DNP 08/10/22 Doxycycline Monohydrate (Doxycycline Monohydrate) 100 Mg Capsule, 1 CAP PO BID for 10 Days, #20 CAP 0 Refills Prov:AMANDA PADILLA MD 12/28/21 Phenazopyridine HCl (Pyridium) 200 Mg Tab, 200 MG PO TID for UTI for 3 Days, #9 TAB 0 Refills Prov:RODNEY GARCIA MD 04/09/21 Nitrofurantoin Monohyd/M-Cryst (Macrobid 100 mg Capsule) 100 Mg Capsule, 100 MG PO BIDPC for UTI, #14 CAP 0 Refills Prov:RODNEY GARCIA MD 04/09/21 Phenazopyridine HCl (Pyridium) 200 Mg Tab, 200 MG PO TIDPC, #9 TAB TAKE WITH FOOD TO PREVENT STOMACH UPSET. Prov:ANDRÉS TURNER 01/09/21 Cephalexin Monohydrate (Keflex) 500 Mg Cap, 500 MG PO TID, #21 CAP Prov:ANDRÉS TURNER 01/09/21 Reported Medications Vits W-Ca,Fe,FA(<1Mg) ( Vitamins) 1 Each Tablet, 1 EACH PO DAILY, #1 TAB 08/05/19 Past Medical History Past Medical History: No Pertinent History Past Surgical History: Other Surgical History Other: TUBAL LIGATION Family History Family History: Negative Social History Social History: Negative, Lives with family, Other Female( History) History: Not Applicable : 5 Para: 5 Aborts: 0 ROS Dictation CONSTITUTIONAL: Negative except for HPI HEAD/FACE: Negative except for HPI EENT: Negative except for HPI RESPIRATORY: Negative except for HPI GASTROINTESTINAL/ABDOMINAL: Negative except for HPI GENITOURINARY: Negative except for HPI MUSCULOSKELETAL: Negative except for HPI INTEGUMENTARY: Negative except for HPI NEUROLOGICAL/PSYCH: Negative except for HPI HEMATOLOGIC/LYMPHATIC: Negative except for HPI All Systems Negative, Except as noted above. 13 point review of systems assessed and all negative except for above. Physical Exam Physical Exam Dictation Vital Signs reviewed General Appearance: Alert, oriented x 3, no acute distress, well developed, nourished. Head and Face: non-traumatic. Eyes: PERRL, pink conjunctivas, eyelid no trauma, anterior chamber with arcus senilis. Ears: Pinnas intact and no signs of trauma or erythema ear canals clear and no discharge TM no erythema Nose: No discharge, no bleeding. Oropharynx: Mouth normal, tongue pink, pharynx clear,no erythema, tonsils no exudates, no abscesses noted, mucous memb len moist Neck: Supple, non-tender, no thyromegaly, no masses, no JVD, no bruits Breast:Deferred Chest:No tenderness, no crepitus, no paradoxical movement, no retractions Lungs:Clear, well-ventilated, symmetric, no rales, no wheezing, no rhonchi, no s tridor, good breath sounds bilaterally Heart: Regular rate, regular rhythm, no murmur, no gallops Vascular: no peripheral edema, Abdomen: Soft, positive bowel sounds, nondistended, no guarding, nontender, no rebound, no masses no hepatomegaly, no splenomegaly, no Thurman's sign, no hernias. Rectal: Deferred Genital: Deferred Neurological: Normal speech, motor function intact, sensory function intact Musculoskeletal: Neck nontender, full range of motion, back nontender, full range of motion, Extremities: nontender, full range of motion Skin: Color pink, dry, no turgor, no rash, no lacerations, no abrasions, no contusions. Lymphatic: Deferred Results Laboratory and Microbiology Lab and Micro Result Laboratory Tests Test 10/08/24 18:47 10/08/24 18:49 White Blood Count 8.8 K/uL (4.8-10.8) Red Blood Count 4.77 MIL/uL (4.00-5.50) Hemoglobin 14.5 g/dL (12.0-16.0) Hematocrit 42.6 % (36-48) Mean Corpuscular Volume 89.3 fL (79-99) Mean Corpuscular Hemoglobin 30.4 pg (27.0-33.0) Mean Corpuscular Hemoglobin Concent 34.0 g/dL (32.0-36.0) Red Cell Distribution Width 13.4 % (11.0-15.5) Platelet Count 308 K/uL (130-400) Mean Platelet Volume 11.1 fL (7.5-10.5) H Immature Granulocyte % (Auto) 0.3 % (0-1) Neutrophils (%) (Auto) 72.8 % (40.0-77.0) Lymphocytes (%) (Auto) 14.2 % (21.0-51.0) L Monocytes (%) (Auto) 11.3 % (3.0-13.0) Eosinophils (%) (Auto) 0.6 % (0.0-8.0) Basophils (%) (Auto) 0.8 % (0.0-5.0) Neutrophils # (Auto) 6.4 K/uL (1.8-7.7) Lymphocytes # (Auto) 1.3 K/uL (1.0-4.8) Monocytes # (Auto) 1.0 K/uL (0.1-1.0) Eosinophils # (Auto) 0.05 K/uL (0.00-0.70) Basophils # (Auto) 0.07 K/uL (0.00-0.20) Absolute Immature Granulocyte (auto 0.03 K/uL (0-1) Nucleated Red Blood Cells 0.0 % (0.0-0.19) Sodium Level 136 mmol/L (136-145) Potassium Level 3.8 mmol/L (3.5-5.1) Chloride Level 99 mmol/L (101-111) L Carbon Dioxide Level 29 mmol/L (21-32) Blood Urea Nitrogen 7 mg/dL (7-18) Creatinine 0.6 mg/dL (0.5-1.0) Glomerular Filtration Rate Calc 121 mL/min (>90) Random Glucose 105 mg/dL (70-105) Total Calcium 8.8 mg/dL (8.5-10.1) Serum Test, Qualitative NEGATIVE (NEGATIVE) Urine Opiates Screen NEGATIVE (NEGATIVE) Urine Barbiturates Screen NEGATIVE (NEGATIVE) Urine Phencyclidine Screen NEGATIVE (NEGATIVE) Urine Amphetamines Screen NEGATIVE (NEGATIVE) Urine Benzodiazepines Screen NEGATIVE (NEGATIVE) Urine Cocaine Screen NEGATIVE (NEGATIVE) Urine Marijuana (THC) Screen NEGATIVE (NEGATIVE) Labs Reviewed?: Yes MDM MDM: This is a 34-year-old female with no significant past medical history presenting to the emergency department for evaluation of left arm cramping in left leg cramping. Patient states she was driving when her symptoms started. She does admit to drinking alcohol last night and is concerned this may be related to that. On physical examination the patient was in no acute distress. She was ambulatory without assistance and with a normal gait. She has a GCS of 15. She is an alert and oriented x4. Her NIH score is 0. There was no facial droop. The remainder of her blood work is unremarkable. Her CBC and chemistries are unremarkable. Her urine drug screen was negative. Her symptoms are most likely related to the heavy alcohol intake she had last night. Her neurological examination is unremarkable and there is no need for advanced imaging at this time. Patient was given 1 L of IV fluids and will be discharged home. Differential diagnosis: Dehydration, electrolyte abnormality, anxiety There are no social concerns with this patient. Prescription drug management Prescriptions will include: None Medical management and examination interpretation discussions were had by me with other qualified healthcare professionals as indicated for the patient's care. ED Course Orders Procedure Category Date Status Time Cbc With Differential LAB 10/08/24 Complete 18:38 Basic Metabolic Panel LAB 10/08/24 Complete 18:38 Drug Screen Urine LAB 10/08/24 Complete 18:38 Testing, LAB 10/08/24 Complete Serum Hcg 18:38 12 Lead Ekg Tracing- EKG 10/08/24 Complete Technical 18:39 0.9%Nacl 1000ml (Ns PHA 10/08/24 Complete 1000ml) 19:00 Acetaminophen 325 Tab PHA 10/08/24 In Process (Tylenol 325mg Tab 19:30 Current Medications Medications (Trade) Dose Ordered Sig/Miriam Route PRN Reason Start Time Stop Time Status Last Admin Dose Admin Acetaminophen (TYLenol 325MG TAB) 650 mg ONCE ONCE PO 10/08/24 19:30 10/08/24 19:31 10/08/24 19:13 Sodium Chloride 1,000 ml @ 0 mls/hr ONCE ONCE IV 10/08/24 19:00 10/08/24 19:01 DC 10/08/24 19:04 Vital Signs Date Time Temp Pulse Resp B/P (MAP) Pulse Ox O2 Delivery O2 Flow Rate FiO2 10/08/24 18:36 98.4 74 20 131/62 98 Room Air* 0 21 10/08/24 18:35 99 16 152/90 100 Room Air 0 DX & DISP Disposition: Discharge Departure Impression: Primary Impression: Paresthesias Condition: Stable Additional Instructions: Your blood work today is unremarkable. Please follow up with your primary care doctor in 2-3 days for repeat evaluation. Referrals: SELF,REFERRAL (PCP) Time of Disposition: 19:30 I have reviewed the case, and I agree with, Diagnosis and Plan I performed the substantive portion of the visit. I have reviewed and personally made and approve the management plan that is documented in the note by myself or the BIN. I acknowledge for responsibility for the patient's management plan. MONTSERRAT LIMA Oct 08, 2024 19:21
[2024-10-08 19:26] LABS: AMPHET/METH SCREEN,URINE NEGATIVE (NEGATIVE); BARBITURATE SCREEN, URINE NEGATIVE (NEGATIVE); BENZODIAZEPINES SCREEN,URINE NEGATIVE (NEGATIVE); CANNABINOID SCREEN,URINE NEGATIVE (NEGATIVE); COCAINE SCREEN,URINE NEGATIVE (NEGATIVE); OPIATE SCREEN,URINE NEGATIVE (NEGATIVE); PHENCYCLIDINE SCREEN,URINE NEGATIVE (NEGATIVE)
[2024-10-08 19:31] VITALS: BP 127/58; PULSE 71; RESP 18; TEMP 98.1; O2SAT 98
== END 2024-10-08 19:38 | disposition home or self-care (01) ==
LOC: EDH 18:32
DX: R20.2 Paresthesia of skin (principal); Z79.899 Other long term (current) drug therapy; Z98.51 Tubal ligation status
CPT/HCPCS: 99284; 80048; 80305; 84703; 85025; 36415; 93005; J7030